=== PATIENT | female | born 1980 | race Caucasian/White ===

== ENCOUNTER 2018-09-08 11:03 | Emergency (ER) | payer MEDICAID ==
[~2018-09-08] VITALS: Ht 157.5 cm; Wt 78.0 kg
[~2018-09-08 11:03] MED LIST: ALBU0.0912 INH
[2018-09-08 11:10] VITALS: BP 126/88
--- NOTE | 2018-09-08 11:24 | NUR ---
BIB WITH C/O COUGH, SORE THROAT, CHILLS, AND BL EAR PAIN 10/10 WITH DIFFICULTY SWALLOWING SINCE TUESDAY. . DENIES N/V/D; SKIN IS PINK/WARM/DRY; AAOX4 WITH EVEN AND STEADY GAIT; LUNGS CLEAR BL; HR EVEN AND REGULAR; PT DENIES ANY FEVER, CP, SOB AT THIS TIME; PATIENT STATES PAIN OF 10/10 AT THIS TIME; VSS; PATIENT POSITIONED FOR COMFORT; HOB ELEVATED; BEDRAILS UP X2; BED DOWN. ER MD MADE AWARE OF PT STATUS.
[2018-09-08] MEDS ORDERED: ALBUTEROL SULFATE/IPRATROPIU 3 ML SOL IH ONE (11:35)
[2018-09-08] MEDS ORDERED: diphenhydrAMINE 50 MG/ML VIAL IM ONE (11:35)
[2018-09-08] MEDS ORDERED: DEXAMETHASONE 10 MG/ML VIAL IM ONE (11:35)
[2018-09-08] MEDS ORDERED: CLINDAMYCIN 150 MG CAP PO ONE (11:50)
[2018-09-08 13:44] VITALS: BP 125/85
--- NOTE | 2018-09-08 13:45 | NUR ---
Patient discharged with v/s stable. Written and verbal after care instructions given and explained. Patient alert, oriented and verbalized understanding of instructions. Ambulatory with steady gait. All questions addressed prior to discharge. ID band removed. Patient advised to follow up with PMD. Rx of AZITHROMYCIN, PROMETHAZINE DM AND PREDNISONE given. Patient educated on indication of medication including possible reaction and side effects. Opportunity to ask questions provided and answered.
== END 2018-09-08 13:45 | disposition home or self-care (01) ==
LOC: MED 11:03
DX: J03.90 Acute tonsillitis, unspecified (principal); J45.909 Unspecified asthma, uncomplicated; H92.09 Otalgia, unspecified ear; Z79.899 Other long term (current) drug therapy
CPT/HCPCS: 87804; 94640; 96372; 99283; J1100; J1200; J7620

== ENCOUNTER 2019-09-01 02:13 | Emergency (ER) | payer MEDICAID ==
[~2019-09-01] VITALS: Ht 160 cm; Wt 66.2 kg
[2019-09-01] MEDS ORDERED: ALBUTEROL 0.083% 2.5 MG/3 ML NEBU INH STA (02:18)
[2019-09-01 02:20] VITALS: BP 118/74
[2019-09-01 03:21] VITALS: BP 118/74
== END 2019-09-01 03:21 | disposition home or self-care (01) ==
LOC: MED 02:13
DX: J45.901 Unspecified asthma with (acute) exacerbation (principal); Z79.899 Other long term (current) drug therapy
CPT/HCPCS: 94640; 99283; J7613

== ENCOUNTER 2019-09-17 15:11 | Emergency (ER) | payer MEDICAID ==
[~2019-09-17] VITALS: Ht 157.5 cm; Wt 82.6 kg
[2019-09-17 15:23] VITALS: BP 131/57
--- NOTE | 2019-09-17 15:33 | NUR ---
39 Y/O FEMALE C/O ASTHMA EXACERBATION THAT STARTED YESTERDAY. PT STATES INCREASED COUGH WITH SOB. PER PT SHE RAN OUT OF HER INHALER DUE TO INCREASED DAILY USE. DENIES CHEST PAIN. DENIES FEVER. RR EVEN AND UNLABORED, SLIGHT WHEEZING HEARD UPON AUSCULTATION. LMP 09/14/2019 HOB ELEVATED, X 1 SIDE RAIL RAISED. PT PLACED ON O2 SAT MONITOR. MEDHX: ASTHMA ALLERGIES: NKA
--- NOTE | 2019-09-17 15:52 | NUR ---
Dr. Abreu is evaluating the patient at bedside.
[2019-09-17] MEDS ORDERED: predniSONE 20 MG TAB PO ONE (16:20)
[2019-09-17] MEDS ORDERED: ALBUTEROL 0.083% 2.5 MG/3 ML NEBU INH ONE (16:20)
[2019-09-17] MEDS ORDERED: ALBUTEROL SULFATE/IPRATROPIU 3 ML SOL IH ONE (16:20)
--- NOTE | 2019-09-17 16:27 | NUR ---
RESPIRATORY AT BEDSIDE FOR INTERVENTION
[2019-09-17 16:46] VITALS: BP 131/57
== END 2019-09-17 16:47 | disposition home or self-care (01) ==
LOC: MED 15:11
DX: J45.909 Unspecified asthma, uncomplicated (principal); Z79.899 Other long term (current) drug therapy
CPT/HCPCS: 94640; 99283; J7512; J7613